=== PATIENT | male | born 1995 | race Caucasian/White ===

== ENCOUNTER 2024-04-22 02:15 | Inpatient (IN) ==
[2024-04-22] MEDS ORDERED: ONDANSETRON INJ 2 MG/ML 2 ML VIAL ONE ×2 (02:58→11:12)
[2024-04-22] MEDS ORDERED: HYDROmorphone INJ 0.5 MG/0.5 ML SYR ONE (02:58)
[2024-04-22] MEDS ORDERED: KETOROLAC TROMETHAMINE 15 MG/ML VIAL ONE (02:58)
[2024-04-22] MEDS: HYDROmorphone INJ 0.5 MG/0.5 ML SYR IV STA (04:39)
[2024-04-22 04:49] LABS: Anion Gap 15 (3-11); BUN Creatinine Ratio 21.2 (10-20); Blood Urea Nitrogen 21 mg/dl (6-23); Calcium 10.9 mg/dl (8.6-10.3); Carbon Dioxide 24 mmol/L (21-32); Chloride 101 mmol/L (98-107); Est GFR (African American) 119.6 ml/min; Est GFR (Non-African American) 103.2 ml/min; Glucose 134 mg/dl (70-99(Fasting)); Potassium 3.6 mmol/L (3.5-5.1); Sodium 140 mmol/L (136-145)
--- NOTE | 2024-04-22 04:50 | Emergency Department Note ---
Impression & Plan Acute appendicitis admit to general surgery ED Provider Note NAME: CHI WALTON AGE: 28 SEX: Male INFORMANT: Patient ED PROVIDER(S): Laurita Cooper DO CHIEF COMPLAINT: right-sided abdominal pain PLAN: Disposition: Admit to general surgery to go to the OR MEDICAL DECISION MAKING: this is a 28-year-old male patient who presents to the emergency department with sudden onset of right-sided abdominal pain and nausea. laboratory studies revealed leukocytosis with a white count of 18,000 and 84% neutrophils. glucose was 134. Patient's pain was controlled with IV Dilaudid and IV Toradol. He was given Zofran for nausea. The patient went for CT scan of the abdomen/pelvis which revealed evidence of acute appendicitis. I discussed the case with general surgery and they will evaluate for further inpatient care. Care/management discussed with: General surgery team Triage Nursing notes: reviewed and agree with them. Vital Signs: reviewed and unremarkable Additional History obtained from: patient's parents who are at the bedside Differential Diagnosis: cholecystitis, ureteral colic, diverticulitis, appendicitis, colitis Diagnostics, independently interpreted by me: Imaging studies: CT scan of the abdomen/pelvis: As per stat rad HPI: 28 year old Male arrives for evaluation of right-sided abdominal pain. patient had a very sudden onset of right-sided abdominal pain and nausea. the pain became quite severe. PAST MEDICAL HISTORY: None, PAST SURGICAL HISTORY: none, SOCIAL HISTORY: patient describes only occasional alcohol use but none recently., HOME MEDICATIONS: None ALLERGIES: none VITALS: [See Below] PHYSICAL EXAMINATION: HEENT: Head - normocephalic and atraumatic. Pupils are equal, round, and reactive to light. Extraocular eye muscles are intact, and sclera are anicteric. Nose - moist nasal mucosa without discharge. Mouth - moist buccal mucosa. Oropharynx is nonerythematous and there is no tonsillar exudate or edema noted. Neck: Supple; no Cervical lymphadenopathy noted Heart: Regular rate and rhythm. There is a normal S1 and S2 with no murmurs, clicks, or gallops appreciated. Lungs: Clear to auscultation bilaterally with no wheezes, rales, or rhonchi. Abdomen: Soft, moderate tenderness to palpation in the right mid abdomen with good bowel sounds. no CVA tenderness on exam. There are no palpable pulsatile masses or hepatosplenomegaly. There is no guarding, rigidity, or rebound noted. Extremities: No evidence of cyanosis, clubbing, or edema. There are easily palpable peripheral pulses. Skin: Pale and diaphoretic. Emergency department treatment: IV normal saline, IV Zofran, IV Dilaudid, IV Toradol, IV Dilaudid Emergency department course: The patient was evaluated in room B-9. A complete history and physical was performed. An IV lock was initiated and labs were drawn as above. Patient was given a dose of IV Toradol, IV Zofran and IV Dilaudid for his discomfort. He went over for CT scan of the abdomen/pelvis. He was kept NPO. I reviewed the results of the labs and CT with the patient and his family. Patient was evaluated by the surgical team. Past Med/Surg History Problem List Acute appendicitis (Acute) COVID-19 (Acute) Medical History No acute medical problems Surgical History No pertinent past surgical history Social History Smoking Status: Never smoker Feels Safe at Home: Yes Allergies Allergies Allergy/AdvReac Type Severity Reaction Status Date / Time No Known Allergies Allergy Unknown Unverified 10/29/05 21:22 Home Meds Home Medications Medication Instructions Recorded Confirmed NONE ##0 07/12/07 Results & Data (ED) Vital Signs Vital Signs - 24 hr 04/22/24 05:41 Pulse Rate 71 Laboratory Data 04/22/24 02:00 04/22/24 02:00 Lab Results 04/22/24 Range/Units 02:00 WBC 18.00 H (4.8-10.8) K/ul RBC 4.86 (4.70-6.10) M/uL Hgb 15.6 (14.0-18.0) g/dl Hct 43.4 (42.0-52.0) % MCV 89.3 (80.0-100.0) fL MCH 32.1 (25.0-34.0) pg MCHC 35.9 (32.0-36.0) g/dL RDW Std Deviation 40.3 (36.4-46.3) fL RDW Coeff of Miki 12.3 (11.5-14.5) % Plt Count 295 (130-400) K/uL MPV 10.3 (9.4-12.4) fL Immature Gran % (Auto) 0.3 % Neut % (Auto) 84.4 % Lymph % (Auto) 9.1 % [place] % (Auto) 5.6 % Eos % (Auto) 0.3 % Baso % (Auto) 0.3 % Neut # (Auto) 15.18 H (1.40-6.50) K/uL Lymph # (Auto) 1.64 (1.20-3.40) K/uL [place] # (Auto) 1.00 H (0.11-0.59) K/uL Eos # (Auto) 0.06 (0.00-0.50) K/uL Baso # (Auto) 0.06 (0.00-0.20) K/uL Immature Gran # (Auto) 0.06 (0.01-0.20) K/uL Sodium 140 (136-145) mmol/L Potassium 3.6 (3.5-5.1) mmol/L Chloride 101 (98-107) mmol/L Carbon Dioxide 24 (21-32) mmol/L Anion Gap 15 H (3-11) BUN 21 (6-23) mg/dl Creatinine 0.99 (0.6-1.4) mg/dl Est Cr Clr Drug Dosing Not Reportable Est GFR ( Amer) 119.6 ml/min Est GFR (Non-Af Amer) 103.2 ml/min BUN/Creatinine Ratio 21.2 H (10-20) Glucose 134 H (70-99(Fasting)) mg/dl Calcium 10.9 H (8.6-10.3) mg/dl Urine Color Yellow Urine Appearance Turbid A (Clear) Urine pH >= 9.0 H (4.5-7.5) Ur Specific [place] 1.025 (1.000-1.030) Urine Protein 1+ H (Negative) Urine Glucose (UA) Negative (Negative) Urine Ketones 2+ H (Negative) Urine Blood Negative (Negative) Urine Nitrite Negative (Negative) Urine Bilirubin Negative (Negative) Urine Urobilinogen Negative (Negative) Ur Leukocyte Esterase Negative (Negative) Urine WBC (Auto) 0-5 (0-5) /hpf Urine RBC (Auto) 0-2 (0-2) /hpf U Hyaline Cast (Auto) 0-2 (0-2) /lpf U Epithel Cells (Auto) 0-2 (0-2) /hpf Urine Bacteria (Auto) None Seen (None Seen) Administered Medications Sodium Chloride (Nss) 1,000 mls @ 125 mls/hr IV .Q8H PAT Stop: 05/22/24 04:59 Last Admin: 04/22/24 05:16 Dose: 125 mls/hr Documented By: JOSH Discontinued Medications Hydromorphone HCl (Hydromorphone Inj 0.5 Mg/0.5 Ml Syr) 0.5 mg IV NOW STA Stop: 04/22/24 04:31 Last Admin: 04/22/24 04:39 Dose: 0.5 mg Documented By: Piperacillin Sod/Tazobactam Sod (Zosyn) 4.5 gm in 100 mls @ 200 mls/hr IV NOW ONE Stop: 04/22/24 05:28 Last Infusion: 04/22/24 05:53 Dose: Infused Documented By: Admin: 04/22/24 05:16 Dose: 200 mls/hr Documented By: JOSH Imaging Data Radiologist's Impression: Abdomen/Pelvis CT 04/22/24 03:20 CR Exam(s): CT ABDOMEN + PELVIS Without Contrast EXAM: CT Abdomen and Pelvis Without Intravenous Contrast CLINICAL HISTORY: severe pain at rlq TECHNIQUE: Axial computed tomography images of the abdomen and pelvis without intravenous contrast. CTDI is 15.29 mGy and DLP is 769.09 mGy-cm. Automated exposure control was utilized for the study. A dose lowering technique was utilized adhering to the principles of ALARA. COMPARISON: No relevant prior studies available. FINDINGS: Exam is limited due to lack of contrast material. Lung bases: No consolidation. ABDOMEN: Liver: Lucencies within the liver appear to represent unopacified blood vessels. Gallbladder and bile ducts: No calcified stones. No ductal dilation. Pancreas: The visualized portions of the pancreas, on this noncontrast study, are grossly unremarkable.. Spleen: No splenomegaly. Adrenals: No mass. Kidneys and ureters: No obstructing stones. No hydronephrosis. Stomach and bowel: There is some air and fluid within the stomach. There is air and stool noted in the colon.. PELVIS: Appendix: The appendix is distended at 11 mm. It contains small appendicoliths. There are surrounding inflammatory changes.. Bladder: No Calculi are noted within the bladder.. Reproductive: Unremarkable as visualized. ABDOMEN and PELVIS: Intraperitoneal space: No free air. No significant fluid collection. Bones/joints: No acute fracture. No dislocation. Soft tissues: Unremarkable. Vasculature: No abdominal aortic aneurysm. Lymph nodes: No enlarged lymph nodes. IMPRESSION: The appendix is distended containing small appendicoliths. There are surrounding inflammatory changes.. This is consistent with acute appendicitis. Communications: 04/22/24 04:27 Call Doctor Regarding Appendicitis, called Dr. Cooper on 04/22 04:27 (-04:00) 04/22/24 04:56 Call From [facility] on 04/22 04:54 (-04:00) Electronically signed by: Shun Pham MD 04/22/24 04:23 AM Discharge Plan Visit Data Chief Complaint: Abdominal Pain Stated Complaint: LOWER ABD PAIN ED Provider: Laurita Cooper Discharge Problem: Acute appendicitis Forms Stand Alone Forms: [employer] Prescriptions Prescriptions: No Action NONE . Qty: 0 Referrals Referrals: PCP,NO [Primary Care Provider] - Discharge Problem: Acute appendicitis Qualifiers: Acute appendicitis type: with localized peritonitis Appendicitis gangrene presence: without gangrene Appendicitis perforation presence: without perforation Appendicitis abscess presence: without abscess Qualified Code(s): K 35.30 - Acute appendicitis with localized peritonitis, without perforation or gangrene
[2024-04-22 04:55] LABS: Basophils # (auto) 0.06 K/uL (0.00-0.20); Basophils % (auto) 0.3 %; Eosinophils # (auto) 0.06 K/uL (0.00-0.50); Eosinophils % (auto) 0.3 %; Hematocrit (blood only) 43.4 % (42.0-52.0); Hemoglobin 15.6 g/dl (14.0-18.0); Immature Granulocytes # (auto) 0.06 K/uL (0.01-0.20); Immature Granulocytes % (auto) 0.3 %; Lymphocytes # (auto) 1.64 K/uL (1.20-3.40); Lymphocytes % (auto) 9.1 %; Mean Corpuscular Hemoglobin 32.1 pg (25.0-34.0); Mean Corpuscular Hgb Conc 35.9 g/dL (32.0-36.0); Mean Corpuscular Volume 89.3 fL (80.0-100.0); Mean Platelet Volume 10.3 fL (9.4-12.4); Monocytes % (auto) 5.6 %; Neutrophils # (auto) 15.18 K/uL (1.40-6.50); Neutrophils % (auto) 84.4 %; Platelet Count 295 K/uL (130-400); RDW Coefficient of Variation 12.3 % (11.5-14.5); RDW Standard Deviation 40.3 fL (36.4-46.3); Red Blood Count 4.86 M/uL (4.70-6.10)
[2024-04-22] MEDS ORDERED: ACETAMINOPHEN 1,000 MG/100 ML VIAL IV PRN (04:59)
[2024-04-22] MEDS ORDERED: MoRPHine SULFATE 4 MG/ML 1 ML CARP\\VIAL IV PRN ×2 (04:59→14:06)
[2024-04-22] MEDS ORDERED: ONDANSETRON INJ 2 MG/ML 2 ML VIAL IV PRN ×2 (04:59→14:06)
--- NOTE | 2024-04-22 05:11 | History & Physical Report ---
Date of Service April 22, 2024 Assessment & Plan (1) Acute appendicitis: Plan: Due to the patient's clinical presentation, labs, and findings on imaging we will proceed as follows: N.p.o. status will be implemented Analgesia will be provided Antiemetics to be provided Will administer antibioticsI have ordered Zosyn Will hydrate him with intravenous fluids Will tenably have the patient planned for an appendectomy with Dr. Perla about an incision and general surgery today. Additional recommendations to be forthcoming based on operative findings as well as his postoperative recovery thereafter Will use SCDs for DVT prevention, no chemical means due to planned surgery He will be a level 1 full code History of Present Illness Chief Complaint: Abdominal pain Primary Care Provider: NO PCP This is a 28-year-old male who presented the emergency department secondary to abdominal pain. The patient works as a election watcher and felt as though he pulled a muscle earlier in the afternoon on 04/13/2024. He then noted that he he began to have some severe right lower quadrant abdominal pain. He notes that he had some associated nausea and vomiting as well as diaphoresis and therefore presented to the emergency department. He does note that the pain is worse with certain movements. It was palliated with medicines administered in the emergency department. He does note that the pain became more severe at approximate 9:00 PM the evening of 04/21/2024. He notes his most recent oral intake was on 04/13/2024 at approximately 11:30 PM. He has never had any abdominal surgery in the past. Since arrival to the hospital patient has had labs and imaging which I independently reviewed. CBC revealed white blood cell count is elevated 18.0. Hemoglobin, hematocrit, and platelet count were normal. Chemistry profile showed sodium and potassium as well as the BUN and creatinine were normal. A CT scan of the abdomen pelvis showed the patient had a dilated appendix with appendicoliths. There is surrounding inflammation but there is no evidence of perforation, abscess, or free air. I discussed with the nurse attending to the patient and the patient is currently normotensive and is not tachycardia or has not had any febrile episodes. She did note that he did have 1 episode of hypotension but this was after receiving some intravenous Dilaudid which improved his pain. At the time of my interview he was resting comfortably in bed and he was in no distress. Concerning past medical history denies any medical problems Concerning past surgical history he does not have any prior surgeries Concerning social history he currently vapes Concerning family history his father is diabetic Allergies Allergy/AdvReac Type Severity Reaction Status Date / Time No Known Allergies Allergy Unknown Unverified 10/29/05 21:22 Home Medications Medication Instructions Recorded Confirmed Type oxycodone 5 mg tablet 5 - 10 mg (1 - 2 x 5 mg) PO 04/22/24 Rx .[id number] PRN pain #15 tabs Past Med/Surg History Problem List Acute appendicitis (Acute) COVID-19 (Acute) Medical History No acute medical problems Surgical History No pertinent past surgical history Social History Smoking Status: Never smoker Feels Safe at Home: Yes Review of Systems Review of Systems: All systems reviewed & are unremarkable except as noted in HPI & below Physical Exam Constitutional: WD/WN, vitals as above Eyes: no conjunctival abnormality ENMT: Ears: no hearing impairment and no external ear abnormality Mouth: no oropharynx abnormality Neck: trachea midline Respiratory: normal respiratory effort, lungs clear to auscultation Cardiovascular: Rate/Rhythm: regular rate and regular rhythm Gastrointestinal (Abdomen): Abdomen is soft and nondistended. It is nonrigid. Patient did have significant tenderness in the right lower quadrant McBurney's point without rebound tenderness or guarding Musculoskeletal: No calf tenderness Skin: no rashes Neurologic: Patient is able move all 4 extremities and follows simple commands without any noted focal deficits Psychiatric: A+Ox3, euthymic affect Supervising Physician Co-Signing Physician Notes Patient seen and examined, labs and imaging reviewed, agree with above. 28-year-old male presented with abdominal pain in the right lower quadrant. Afebrile with stable vitals. On exam tender to palpation in the right lower quadrant with localized guarding. WBC mildly elevated. CT scan personally reviewed and interpreted agree with the assessment of acute appendicitis without evidence of perforation. Plan for laparoscopic appendectomy Risks of the procedure were discussed to include but not limited to bleeding, infection, conversion open, damage surrounding structures, need for future more extensive surgery, and the risk of anesthesia Potential discharge this afternoon Wound care instructions, activity restrictions, and return precautions given PG Care Time/CCT Total # of Minutes Spent Total Time Spent with Patient: Total time spent is greater than 50% in coordination of care (as documented) at patient's floor/unit and/or counseling patient: Coding Level of Care Code 46821 INT INP/OBS CARE 3/75MIN Diagnoses Acute appendicitis K35.30 Acute appendicitis type: with localized peritonitis Appendicitis abscess presence: without abscess Appendicitis gangrene presence: without gangrene Appendicitis perforation presence: without perforation (1) Acute appendicitis Acute appendicitis type: with localized peritonitis Appendicitis abscess presence: without abscess Appendicitis gangrene presence: without gangrene Appendicitis perforation presence: without perforation Qualified Code(s): K35.30 - Acute appendicitis with localized peritonitis, without perforation or gangrene
[2024-04-22] MEDS: PIPERACILLIN/TAZOBACTAM 4.5 GM/100 ML BAG IV ONE (05:16)
[2024-04-22] MEDS: SODIUM CHLORIDE 0.9% 1,000 ML IV SCH (05:16)
[2024-04-22 05:21] LABS: Appearance Urine Turbid (Clear); Bacteria Urine Automated None Seen (None Seen); Bilirubin Urine Negative (Negative); Blood Urine Negative (Negative); Cast Urine Automated 0-2 /lpf (0-2); Color Urine Yellow; Epithelial Cell Urine Auto 0-2 /hpf (0-2); Glucose Urine UA Negative (Negative); Ketones Urine 2+ (Negative); Leukocyte Esterase Urine Negative (Negative); Nitrite Urine Negative (Negative); Protein Urine 1+ (Negative); RBC Urine Automated 0-2 /hpf (0-2); Specific Gravity Urine 1.025 (1.000-1.030); Urobilinogen Urine Negative (Negative); WBC Urine Automated 0-5 /hpf (0-5); pH Urine >= 9.0 (4.5-7.5)
--- NOTE | 2024-04-22 06:32 | CT Scan Report ---
Exam(s): CT ABDOMEN + PELVIS Without Contrast EXAM: CT Abdomen and Pelvis Without Intravenous Contrast CLINICAL HISTORY: severe pain at rlq TECHNIQUE: Axial computed tomography images of the abdomen and pelvis without intravenous contrast. CTDI is 15.29 mGy and DLP is 769.09 mGy-cm. Automated exposure control was utilized for the study. A dose lowering technique was utilized adhering to the principles of ALARA. COMPARISON: No relevant prior studies available. FINDINGS: Exam is limited due to lack of contrast material. Lung bases: No consolidation. ABDOMEN: Liver: Lucencies within the liver appear to represent unopacified blood vessels. Gallbladder and bile ducts: No calcified stones. No ductal dilation. Pancreas: The visualized portions of the pancreas, on this noncontrast study, are grossly unremarkable.. Spleen: No splenomegaly. Adrenals: No mass. Kidneys and ureters: No obstructing stones. No hydronephrosis. Stomach and bowel: There is some air and fluid within the stomach. There is air and stool noted in the colon.. PELVIS: Appendix: The appendix is distended at 11 mm. It contains small appendicoliths. There are surrounding inflammatory changes.. Bladder: No Calculi are noted within the bladder.. Reproductive: Unremarkable as visualized. ABDOMEN and PELVIS: Intraperitoneal space: No free air. No significant fluid collection. Bones/joints: No acute fracture. No dislocation. Soft tissues: Unremarkable. Vasculature: No abdominal aortic aneurysm. Lymph nodes: No enlarged lymph nodes. IMPRESSION: The appendix is distended containing small appendicoliths. There are surrounding inflammatory changes.. This is consistent with acute appendicitis. Communications: 04/22/24 04:27 Call Doctor Regarding Appendicitis, called Dr. Cooper on 04/22 04:27 (-04:00) 04/22/24 04:56 Call From [facility] on 04/22 04:54 (-04:00) Electronically signed by: Shun Pham MD 04/22/24 04:23 AM
--- NOTE | 2024-04-22 07:14 | Anesthesiology Consultation ---
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 Surgery Operation Date: 04/22/24 08:20 Proposed Procedures p Laparoscopic Appendectomy - Kp Perla DO, FACS Allergies Allergy/AdvReac Type Severity Reaction Status Date / Time No Known Allergies Allergy Unknown Unverified 10/29/05 21:22 Medications Home Medications Medication Instructions Recorded Confirmed Last Taken NONE ##0 07/12/07 Unknown Active Medications Generic Name Dose Route Start Last Admin Trade Name Freq PRN Reason Stop Dose Admin Sodium Chloride 1,000 mls @ 125 mls/hr 04/22/24 05:00 04/22/24 05:16 Nss IV 05/22/24 04:59 125 mls/hr .Q8H PAT Administration Past Medical History Medical History No acute medical problems Past Surgical History Surgical History No pertinent past surgical history Social History Smoking Status: Never smoker Physical Exam Vital Signs Last Vital Signs Pulse 71 04/22/24 05:41 Testing Laboratory Results 04/22/24 02:00 04/22/24 02:00 Urine Color Yellow 04/22/24 02:00 Urine Appearance Turbid (Clear) A 04/22/24 02:00 Urine pH >= 9.0 (4.5-7.5) H 04/22/24 02:00 Ur Specific [place] 1.025 (1.000-1.030) 04/22/24 02:00 Urine Protein 1+ (Negative) H 04/22/24 02:00 Urine Glucose (UA) Negative (Negative) 04/22/24 02:00 Urine Ketones 2+ (Negative) H 04/22/24 02:00 Urine Nitrite Negative (Negative) 04/22/24 02:00 Ur Leukocyte Esterase Negative (Negative) 04/22/24 02:00 Urine WBC (Auto) 0-5 /hpf (0-5) 04/22/24 02:00 Urine RBC (Auto) 0-2 /hpf (0-2) 04/22/24 02:00 U Hyaline Cast (Auto) 0-2 /lpf (0-2) 04/22/24 02:00 U Epithel Cells (Auto) 0-2 /hpf (0-2) 04/22/24 02:00 Urine Bacteria (Auto) None Seen (None Seen) 04/22/24 02:00
[2024-04-22] MEDS: SODIUM CHLORIDE 0.9% 500 ML IV ONE (07:59)
[2024-04-22] MEDS: PIPERACILLIN/TAZOBACTAM 4.5 GM/100 ML BAG IV SCH (10:30)
[2024-04-22] MEDS ORDERED: fentaNYL citrate PF 100 MCG/2 ML VIAL ONE ×2 (11:12→13:26)
[2024-04-22] MEDS ORDERED: DEXAMETHASONE SOD INJ 4 MG/ML VIAL ONE (11:12)
[2024-04-22] MEDS ORDERED: LIDOCAINE 2% 2 ML VIAL/AMP(20MG/ML) INFIL ONE (11:12)
[2024-04-22] MEDS ORDERED: PROPOFOL IV EMULSION 10 MG/ML 20 ML VIAL IV ONE (11:12)
[2024-04-22] MEDS ORDERED: MIDAZOLAM HCL 1 MG/ML 2ML VIAL ONE (11:12)
[2024-04-22] MEDS ORDERED: ROCURONIUM BROMIDE 10 MG/ML 5 ML VIAL IV ONE ×5 (11:43)
[2024-04-22] MEDS ORDERED: PROMETHAZINE HCL 6.25 MG in SODIUM CHLORIDE 0.9% 50 ML IV PRN (11:56)
[2024-04-22] MEDS ORDERED: ePHEDrine sulfate 50 MG/ML AMP IV PRN (11:56)
[2024-04-22] MEDS ORDERED: ATROPINE SULFATE 0.1 MG/ML 10ML SYR IV PRN (11:56)
[2024-04-22] MEDS ORDERED: HYDROmorphone INJ 2 MG/ML SYR/VIAL IV PRN (11:56)
[2024-04-22] MEDS ORDERED: SUCCINYLCHOLINE 100MG/5ML SYR IV ONE (13:13)
[2024-04-22] MEDS ORDERED: PHENYLEPHRINE 100MCG/ML 10ML SYR IV ONE (13:13)
[2024-04-22] MEDS ORDERED: ePHEDrine sulfate 50 MG/5 ML SYR ONE (13:13)
[2024-04-22] MEDS ORDERED: GLYCOPYRROLATE 0.2 MG/ML VIAL ONE (13:38)
[2024-04-22] MEDS ORDERED: NEOSTIGMINE METHYLSULFATE 1 MG/ML 10ML VIAL ONE (13:38)
[2024-04-22] MEDS: BUPIVACAINE 0.5 % 5 MG/1 ML MPF 30ML VIAL ONE (14:01)
[2024-04-22] MEDS ORDERED: MoRPHine SULFATE 2 MG/ML CARP IV PRN (14:06)
[2024-04-22] MEDS ORDERED: ACETAMINOPHEN 325 MG TAB PO PRN (14:06)
[2024-04-22] MEDS ORDERED: oxyCODONE HCL IR 5 MG TAB (IMMEDIATE RELEASE) PO PRN (14:06)
--- NOTE | 2024-04-22 14:13 | Operative Report ---
PG Post Operative Report Pre & Post Diagnosis Operation Date: 04/22/24 08:20 Pre-Op Diagnosis: Appendicitis Post-Op Diagnosis: Appendicitis I identified the patient and participated in the time-out.: Yes Procedure Operation Date: 04/22/24 08:20 Actual Procedures p Robotic Assisted Laparoscopic Appendectomy(Not Applicable) - Kp Perla DO, FACS Surgeon Kp Perla DO, FACS Research Greenhouse Supervisor None Estimated Blood Loss 5 Findings Consistent with Post-Op Diagnosis Acute, nonperforated appendicitis. Specimens Appendix Anesthesia Type General Complications none Disposition Accompanied Patient To Recovery: No Disposition: Recovery Room Indications 28-year-old male presented with signs and symptoms of appendicitis, confirmed by CT scan. Plan for laparoscopic appendectomy. The risks of the procedure were discussed, all questions were answered, and the patient agreed to proceed with surgery as planned. Description of Procedure The patient was appropriately identified, consented, and taken to the operating room where he was placed in the supine position. General endotracheal anesthesia was induced. The patient's abdomen was prepped and draped in the standard sterile fashion. A Epperson catheter was not placed. SCDs, and a safety belt were placed. Preoperative antibiotics were administered. Surgical timeout was performed and all parties were in agreement as to correct patient and procedure to be performed we continued his plan. An incision was made just to the left of midline above the umbilicus. Veress needle was inserted and saline drop test confirmed entry into the abdomen. The abdomen was insufflated with carbon dioxide to the patient tolerated without incident. The abdomen was then entered using an 8 mm robotic port and a 5 mm 30 degree laparoscope using the Optiview technique. The introducer was removed and the camera reinserted. The abdomen was explored and no damage from initial trocar placement or Veress needle placement was identified. The appendix was easily visible, mildly dilated and congested to indicate an acute appendicitis. There was no evidence of perforation. An 8 mm port was then placed in the left lower quadrant and a 12 mm port was placed in the right upper quadrant. The patient was placed in Trendelenburg position and rotated towards the left. The robot was docked and the instruments were inserted. The mesoappendix was grasped and elevated towards the abdominal wall. A window was created between the mesoappendix and the appendix near the base. The mesoappendix was then divided using the fenestrated bipolar. Hemostasis appeared excellent. The appendix was then divided at the base using a blue loaded robotic stapler. There was a small amount of bleeding from the staple line which was controlled with the cautery scissors. Hemostasis appeared excellent. There was no reactive fluid in the pelvis. The instruments were removed and the robot was undocked. The appendix was placed in a laparoscopic bag and removed through the 12 mm port site. The fascia of the 12 m port site was closed with a [id number] 0 Vicryl suture utilizing the James-Ale device. The 8 mm ports were removed and the abdomen was allowed to collapse. The wounds were irrigated and local anesthetic was injected. The skin was closed with interrupted 4-0 Monocryl deep dermal sutures. Dermabond was placed over the incisions. The patient was extubated in the operating room and taken to the PACU where he recovered without apparent incident. All instrument, sponge, and needle counts were correct at the conclusion of the procedure. The patient tolerated the procedure without incident. I attest to the content of the Intraoperative Record and any orders documented therein. Any exceptions are noted below.
[2024-04-22] MEDS ORDERED: SODIUM CHLORIDE 0.9% 1,000 ML IV SCH (14:15)
--- NOTE | 2024-04-22 14:39 | Anesthesiology Progress Note ---
Date of Service April 22, 2024 Anesthesia Post Procedure Vital Signs Vital Signs: Temp Pulse Pulse Pulse Resp BP BP 04/22/24 14:25 78 13 111/64 04/22/24 14:16 36.0 C L 103 H 20 121/75 04/22/24 10:52 36.6 C 64 20 97/57 L 04/22/24 10:03 62 17 91/49 L 04/22/24 09:50 36.5 C 18 04/22/24 09:34 91/45 L 04/22/24 09:33 65 17 93/62 L 04/22/24 09:30 76/45 L 04/22/24 09:03 59 L 14 04/22/24 09:00 86/52 L 04/22/24 08:30 58 L 12 88/53 L 04/22/24 08:12 70 16 04/22/24 08:00 56 L 18 90/46 L 04/22/24 07:51 56 L 16 84/49 L 04/22/24 07:30 60 12 04/22/24 07:21 61 13 04/22/24 05:41 71 Pulse Ox O2 Del Method O2 Flow Rate 04/22/24 14:25 100 Oxymask 4 04/22/24 14:16 96 Oxymask 6 04/22/24 10:52 97 Room Air 04/22/24 10:03 98 Room Air 04/22/24 09:50 98 Room Air 04/22/24 09:34 04/22/24 09:33 98 Nasal Cannula 2 04/22/24 09:30 04/22/24 09:03 97 04/22/24 09:00 04/22/24 08:30 96 Room Air 04/22/24 08:12 99 Room Air 04/22/24 08:00 96 Room Air 04/22/24 07:51 95 Room Air 04/22/24 07:30 96 Room Air 04/22/24 07:21 94 Room Air 04/22/24 05:41 Pain Intensity Bilateral Neck: Pain Intensity: 6 Transfer of Care Handoff Completed per policy Notes Mental Status: alert / awake / arousable and participated in evaluation Nausea / Vomiting: adequately controlled Pain: adequately controlled Airway Patency, RR, SpO2: stable & adequate BP & HR: stable & adequate Hydration State: stable & adequate Anesthetic Complications: no major complications apparent and Pt Satisfied with anesthetic care
[2024-04-22] MEDS: oxyCODONE HCL IR 5 MG TAB (IMMEDIATE RELEASE) PO PRN (15:33)
== END 2024-04-22 16:17 | disposition home or self-care (01) | DRG 399 ==
LOC: ED 02:15 → EDINP 05:14
DX: K35.80 Unspecified acute appendicitis